=== PATIENT | male | born 1960 | race American Indian/Alaskan Native ===

== ENCOUNTER 2017-08-18 09:50 | Inpatient (IN) | payer OTHER ==
[2017-08-18 10:53] LABS: Basophils # (Auto) 0.1 K/mm3 (0.0-0.1); Basophils % (Auto) 0.9 % (0.0-1.8); Eosinophils # (Auto) 0.1 K/mm3 (0.0-0.4); Hematocrit 42.9 % (35.5-45.6); Hemoglobin 14.1 gm/dl (11.8-15.2); Lymphocytes % (Auto) 22.4 % (13.4-35.0); Mean Corpuscular HGB Conc 33 % (32-34); Mean Corpuscular Hemoglobin 29 pg (28-32); Mean Corpuscular Volume 87 fl (84-94); Monocytes # (Auto) 0.6 K/mm3 (0.0-0.8); Monocytes % (Auto) 7.2 % (0.0-7.3); Platelet Count 312 K/mm3 (140-440); Red Blood Count 4.93 M/mm3 (3.65-5.03); Red Cell Distribution Width 13.9 % (13.2-15.2)
--- NOTE | 2017-08-18 11:00 | Emergency Department Report ---
ED Neuro Deficit HPI - General Chief Complaint: High BP Stated Complaint: HIGH BP/UNSTEADY Time Seen by Provider: 08/18/17 10:13 Source: patient Mode of arrival: Ambulatory Limitations: No Limitations - History of Present Illness Initial Comments: Mr Kyle is a 56 year-old man with hx of HTN, IDDM who presents with unsteady gait. Onset last night around 6pm. When he stands up he needs help or he falls over to the left side. No spinning sensation. Endorses intermittent blurred vision, none now. Endorses moderate headache. Worse when he is up and around, better when he lays flat. better in the morning. No weakness, no tingling. Has very hard to control BP. SBP always in 200s per patient. No chest pain, no shortness of breath. Home meds: Insulin 70/30 Amlodipine 5mg qd Lisinopril 20mg qd Hydralazine 25mg TID Clonidine 0.1mg qhs\ Reports taking all morning meds prior to arrival. -: Sudden Location: ataxia Presenting Symptoms: Absent: Weak/Paralyzed One Side, Altered Mental Status Place: home Severity: moderate Improves With: none Worsens With: none On Anticoagulants: No Context: sudden onset Associated Symptoms: headaches Treatments Prior to Arrival: none - Related Data Home Medications: Home Medications Medication Instructions Recorded Confirmed Last Taken Gwqux-Diuiu-Prqw 10-320-25 mg 10 - 320 mg PO DAILY 07/09/14 07/09/14 06/29/14 10-320 Aspirin 81 mg PO DAILY 07/09/14 07/09/14 06/29/14 81 Metoprolol 25 mg PO DAILY 07/09/14 07/09/14 06/29/14 Lisinopril 20 mg PO 08/18/17 Unknown amLODIPine [Norvasc] 5 mg PO DAILY 08/18/17 08/18/17 08/18/17 cloNIDine [Catapres] 0.1 mg PO QHS 08/18/17 08/18/17 08/18/17 hydrALAZINE [Apresoline] 25 mg PO Q8HR 08/18/17 08/18/17 08/18/17 Previous Rx's Medication Instructions Recorded Last Taken Type AtorvaSTATin [Lipitor] 10 mg PO DAILY #30 tablet 07/12/14 Unknown Rx Insulin NPH/Regular [NovoLIN 70/30] 32 unit SUB-Q BIDDIAB #1 units 07/12/14 Unknown Rx Lancets 1 each QAC #90 each 07/12/14 Unknown Rx Syringe and Needle,Insulin,1Ml 1 each BIDAC #60 disp.syrin 07/12/14 Unknown Rx [Advocate Syringes] Allergies/Adverse Reactions: Allergies Allergy/AdvReac Type Severity Reaction Status Date / Time No Known Allergies Allergy Verified 08/18/17 09:55 ED Review of Systems ROS: Stated complaint: HIGH BP/UNSTEADY Other details as noted in HPI Comment: All other systems reviewed and negative ED Past Medical Hx - Past Medical History Hx Hypertension: Yes Hx Congestive Heart Failure: No Hx Diabetes: Yes Hx Headaches / Migraines: No Hx Seizures: No Hx Asthma: No Hx COPD: No Hx Dementia: No - Surgical History Past Surgical History?: No - Social History Smoking Status: Never Smoker Substance Use Type: None - Medications Home Medications: Home Medications Medication Instructions Recorded Confirmed Last Taken Type Prthr-Hgxno-Vzoq 10-320-25 mg 10 - 320 mg PO DAILY 07/09/14 07/09/14 06/29/14 History 10-320 Aspirin 81 mg PO DAILY 07/09/14 07/09/14 06/29/14 History 81 Metoprolol 25 mg PO DAILY 07/09/14 07/09/14 06/29/14 History AtorvaSTATin [Lipitor] 10 mg PO DAILY #30 tablet 07/12/14 Unknown Rx Insulin NPH/Regular [NovoLIN 70/30] 32 unit SUB-Q BIDDIAB #1 units 07/12/14 Unknown Rx Lancets 1 each QAC #90 each 07/12/14 Unknown Rx Syringe and Needle,Insulin,1Ml 1 each BIDAC #60 disp.syrin 07/12/14 Unknown Rx [Advocate Syringes] Lisinopril 20 mg PO 08/18/17 Unknown History amLODIPine [Norvasc] 5 mg PO DAILY 08/18/17 08/18/17 08/18/17 History cloNIDine [Catapres] 0.1 mg PO QHS 08/18/17 08/18/17 08/18/17 History hydrALAZINE [Apresoline] 25 mg PO Q8HR 08/18/17 08/18/17 08/18/17 History ED Neuro Physical Exam - General Limitations: No Limitations General appearance: alert, in no apparent distress Suspected Stroke: Yes - Head Head exam: Present: atraumatic, normocephalic - Eye Eye exam: Present: normal appearance, PERRL, EOMI. Absent: scleral icterus, conjunctival injection, nystagmus - ENT ENT exam: Present: normal exam, normal orophraynx, mucous membranes moist - Neck Neck exam: Present: normal inspection. Absent: tenderness, meningismus - Respiratory Respiratory exam: Present: normal lung sounds bilaterally. Absent: respiratory distress, wheezes, rales - Cardiovascular Cardiovascular Exam: Present: regular rate, normal rhythm, normal heart sounds - GI/Abdominal GI/Abdominal exam: Present: soft. Absent: distended, tenderness, guarding - Extremities Exam Extremities exam: Present: normal inspection, normal capillary refill. Absent: tenderness - Back Exam Back exam: Present: normal inspection. Absent: tenderness - Neurological Exam Neurological exam: Present: alert, altered, oriented X3, CN II-XII intact, abnormal gait. Absent: motor sensory deficit (falls to left when he stands up. Unable to stand on one foot, falls to left. finger to nose normal) - NIHSS Assessment Interval: Baseline 1a. Level of Consciousness: alert 1b. LOC Questions: answers correctly 1c. LOC Commands: performs tasks correctly 2. Best Gaze: normal 3. Visual: no visual loss 4. Facial Palsy: normal symmetrical movement 5b. Motor Arm Right: no drift 5a. Motor Arm Left: no drift 6a. Motor Leg Left: no drift 6b. Motor Leg Right: no drift 7. Limb Ataxia: absent 8. Sensory: normal 9. Best Language: no aphasia 10. Dysarthria: normal 11. Extinction/Inattention: no abnormality Total Score: 0 Stroke Severity: No Stroke Symptoms - Psychiatric Psychiatric exam: Present: normal affect, normal mood - Skin Skin exam: Present: warm, dry, intact ED Course Vital Signs 08/18/17 08/18/17 09:55 11:00 Temperature 98.1 F Pulse Rate 68 75 Respiratory 18 18 Rate Blood Pressure 224/115 Blood Pressure 208/107 [Right] O2 Sat by Pulse 99 98 Oximetry - Lab Data Result diagrams: 08/18/17 10:27 08/18/17 10:27 Lab Results 08/18/17 08/18/17 08/18/17 Range/Units 10:27 10:27 10:27 WBC 8.9 (4.5-11.0) K/mm3 RBC 4.93 (3.65-5.03) M/mm3 Hgb 14.1 (11.8-15.2) gm/dl Hct 42.9 (35.5-45.6) % MCV 87 (84-94) fl MCH 29 (28-32) pg MCHC 33 (32-34) % RDW 13.9 (13.2-15.2) % Plt Count 312 (140-440) K/mm3 Lymph % (Auto) 22.4 (13.4-35.0) % [place] % (Auto) 7.2 (0.0-7.3) % Eos % (Auto) 1.0 (0.0-4.3) % Baso % (Auto) 0.9 (0.0-1.8) % Lymph # 2.0 (1.2-5.4) K/mm3 [place] # 0.6 (0.0-0.8) K/mm3 Eos # 0.1 (0.0-0.4) K/mm3 Baso # 0.1 (0.0-0.1) K/mm3 Seg Neutrophils % 68.5 (40.0-70.0) % Seg Neutrophils # 6.1 (1.8-7.7) K/mm3 PT 12.5 (12.2-14.9) Sec. INR 0.89 (0.87-1.13) Sodium 143 (137-145) mmol/L Potassium 4.1 (3.6-5.0) mmol/L Chloride 97.3 L (98-107) mmol/L Carbon Dioxide 28 (22-30) mmol/L Anion Gap 22 mmol/L BUN 10 (9-20) mg/dL Creatinine 0.9 (0.8-1.5) mg/dL Estimated GFR > 60 ml/min BUN/Creatinine Ratio 11 % Glucose 135 H (75-100) mg/dL Calcium 9.8 (8.4-10.2) mg/dL Total Bilirubin 0.60 (0.1-1.2) mg/dL AST 16 (5-40) units/L ALT 18 (7-56) units/L Alkaline Phosphatase 100 (35-129) units/L Troponin T < 0.010 (0.00-0.029) ng/mL Total Protein 7.8 (6.3-8.2) g/dL Albumin 4.7 (3.9-5) g/dL Albumin/Globulin Ratio 1.5 % Urine Color (Yellow) Urine Turbidity (Clear) Urine pH (5.0-7.0) Ur Specific [place] (1.003-1.030) Urine Protein (Negative) mg/dL Urine Glucose (UA) (Negative) mg/dL Urine Ketones (Negative) mg/dL Urine Blood (Negative) Urine Nitrite (Negative) Urine Bilirubin (Negative) Urine Urobilinogen (<2.0) mg/dL Ur Leukocyte Esterase (Negative) Urine WBC (Auto) (0.0-6.0) /HPF Urine RBC (Auto) (0.0-6.0) /HPF Urine Opiates Screen Urine Methadone Screen Ur Barbiturates Screen Ur Phencyclidine Scrn Ur Amphetamines Screen U Benzodiazepines Scrn Urine Cocaine Screen Plasma/Serum Alcohol (0-0.07) % 08/18/17 08/18/17 08/18/17 Range/Units 10:27 10:53 10:53 WBC (4.5-11.0) K/mm3 RBC (3.65-5.03) M/mm3 Hgb (11.8-15.2) gm/dl Hct (35.5-45.6) % MCV (84-94) fl MCH (28-32) pg MCHC (32-34) % RDW (13.2-15.2) % Plt Count (140-440) K/mm3 Lymph % (Auto) (13.4-35.0) % [place] % (Auto) (0.0-7.3) % Eos % (Auto) (0.0-4.3) % Baso % (Auto) (0.0-1.8) % Lymph # (1.2-5.4) K/mm3 [place] # (0.0-0.8) K/mm3 Eos # (0.0-0.4) K/mm3 Baso # (0.0-0.1) K/mm3 Seg Neutrophils % (40.0-70.0) % Seg Neutrophils # (1.8-7.7) K/mm3 PT (12.2-14.9) Sec. INR (0.87-1.13) Sodium (137-145) mmol/L Potassium (3.6-5.0) mmol/L Chloride (98-107) mmol/L Carbon Dioxide (22-30) mmol/L Anion Gap mmol/L BUN (9-20) mg/dL Creatinine (0.8-1.5) mg/dL Estimated GFR ml/min BUN/Creatinine Ratio % Glucose (75-100) mg/dL Calcium (8.4-10.2) mg/dL Total Bilirubin (0.1-1.2) mg/dL AST (5-40) units/L ALT (7-56) units/L Alkaline Phosphatase (35-129) units/L Troponin T (0.00-0.029) ng/mL Total Protein (6.3-8.2) g/dL Albumin (3.9-5) g/dL Albumin/Globulin Ratio % Urine Color Yellow (Yellow) Urine Turbidity Clear (Clear) Urine pH 7.0 (5.0-7.0) Ur Specific [place] 1.009 (1.003-1.030) Urine Protein <15 mg/dl (Negative) mg/dL Urine Glucose (UA) 50 (Negative) mg/dL Urine Ketones Neg (Negative) mg/dL Urine Blood Neg (Negative) Urine Nitrite Neg (Negative) Urine Bilirubin Neg (Negative) Urine Urobilinogen < 2.0 (<2.0) mg/dL Ur Leukocyte Esterase Neg (Negative) Urine WBC (Auto) < 1.0 (0.0-6.0) /HPF Urine RBC (Auto) 1.0 (0.0-6.0) /HPF Urine Opiates Screen Presumptive negative Urine Methadone Screen Presumptive negative Ur Barbiturates Screen Presumptive negative Ur Phencyclidine Scrn Presumptive negative Ur Amphetamines Screen Presumptive negative U Benzodiazepines Scrn Presumptive negative Urine Cocaine Screen Presumptive negative Plasma/Serum Alcohol < 0.01 (0-0.07) % 08/18/17 10:01 HR 65, sinus, normal axis, intervals wnl, no ST changes concerning for acute ischemia - Radiology Data EXAM: CT HEAD/BRAIN WO CON HISTORY: unsteady gait COMPARISON: None. TECHNIQUE: Multiple contiguous axial images were obtained from the skullbase to the vertex without administration of IV contrast. FINDINGS: Brain volume is normal for age. No hemorrhage, mass, mass effect, or midline shift. Ventricles are not enlarged. Normal basal cisterns. No pathologic extra-axial fluid collection. No evidence of acute infarct. No skull fracture. Paranasal sinuses and mastoid air cells are clear. Bilateral orbits are grossly intact. IMPRESSION: No acute intracranial abnormality. - Medical Decision Making Mr Kyle is a 56 year-old man with hard to control high blood pressure, insulin dependent DM on 70/30 who presents with 18 hours of unsteady gait, AGUILERA. Endorses intermittent blurred vision for longer period of time. NIHSS 0, but unable to stand/walk without assistance. No vertigo symptoms. Suspect this is cerebellar CVA vs TIA vs peripheral neuropathy vs vitamin deficiency. Low suspicion of ACS. EKG non-ischemic. Trop neg. Lytes wnl. CBC wnl. CT head without abnormality. BP coming down with PO hydral and amlodipine. Admit for posterior CVA work-up. Giving 10mg IV hydralazine as well. he reports his AGUILERA has fully resolved. Taking PO. Remains unsteady, falls to the left. Admit to tele Critical care attestation.: If time is entered above; I have spent that time in minutes in the direct care of this critically ill patient, excluding procedure time. ED Disposition Clinical Impression: Hypertension Qualifiers: Hypertension type: unspecified Qualified Code(s): I10 - Essential (primary) hypertension TIA (transient ischemic attack) Qualifiers: Transient cerebral ischemia type: unspecified Qualified Code(s): G45.9 - Transient cerebral ischemic attack, unspecified Disposition: 09 OP ADMIT IP TO THIS HOSP Is pt being admited?: Yes Condition: Stable Instructions: Hypertension (ED) Referrals: PRIMARY CARE, [Primary Care Provider] - 3-5 Days
[2017-08-18 11:12] LABS: Alanine Aminotransferase 18 units/L (7-56); Albumin 4.7 g/dL (3.9-5); BUN/Creatinine Ratio 11; Blood Urea Nitrogen 10 mg/dL (9-20); Calcium 9.8 mg/dL (8.4-10.2); Hemolysis Index 4
[2017-08-18 11:18] LABS: INR 0.89 (0.87-1.13)
[2017-08-18 11:22] LABS: Bilirubin,Urine NEG (Negative); Blood,Urine NEG (Negative); Color,Urine Yellow (Yellow); Protein,Urine <15 mg/dL mg/dL (Negative); Urobilinogen,Urine < 2.0 mg/dL (<2.0); WBC,Urine < 1.0 /HPF (0.0-6.0)
[2017-08-18 11:33] LABS: Amphetamine Screen,Urine PRESUMPTIVE NEGATIVE; Benzodiazepines Screen,Urine PRESUMPTIVE NEGATIVE; Cocaine Screen,Urine PRESUMPTIVE NEGATIVE; Methadone Screen,Urine PRESUMPTIVE NEGATIVE; Opiate Screen,Urine PRESUMPTIVE NEGATIVE
--- NOTE | 2017-08-18 11:38 | Cat Scan Report ---
FINAL REPORT EXAM: CT HEAD/BRAIN WO CON HISTORY: unsteady gait COMPARISON: None. TECHNIQUE: Multiple contiguous axial images were obtained from the skullbase to the vertex without administration of IV contrast. FINDINGS: Brain volume is normal for age. No hemorrhage, mass, mass effect, or midline shift. Ventricles are not enlarged. Normal basal cisterns. No pathologic extra-axial fluid collection. No evidence of acute infarct. No skull fracture. Paranasal sinuses and mastoid air cells are clear. Bilateral orbits are grossly intact. IMPRESSION: No acute intracranial abnormality.
[2017-08-18] MEDS ORDERED: APRESOLINE IV ONE ×2 (12:17→15:00)
[2017-08-18 12:23] LABS: Cannabinoid Screen,Urine PRESUMPTIVE POSITIVE
[2017-08-18] MEDS ORDERED: MORPHINE IV ONE (14:10)
[2017-08-18] MEDS ORDERED: MORPHINE ONE (14:11)
[2017-08-18] MEDS ORDERED: APRESOLINE ONE (15:10)
[2017-08-18] MEDS ORDERED: TYLENOL PO PRN (17:13)
[2017-08-18] MEDS ORDERED: SODIUM CHLORIDE FLUSH SYRINGE 10 ML IV PRN (17:13)
[2017-08-18] MEDS ORDERED: PERCOCET 5/325 PO PRN (17:13)
[2017-08-18] MEDS ORDERED: ZOFRAN IV PRN (17:13)
[2017-08-18] MEDS ORDERED: MORPHINE IV PRN (17:13)
--- NOTE | 2017-08-18 17:25 | History and Physical Report ---
History of Present Illness Date of examination: 08/18/17 Date of admission: 08/18/17 14:38 Chief complaint: Chief complaint: Unsteady gait since 6:30 PM yesterday evening History of present illness: History of Present Illness: 56-year-old black male with history of hypertension insulin-dependent diabetes noncompliant comes in for unsteady gait since last night around 6 PM. Patient also has blurred vision and headache. Headache is about 7 on scale of 1-10. No chest pain. Unsteady gait persists. Patient does not have any nasal regurgitation of fluids. No diplopia. His blood pressure was high in the emergency room Mr Kyle is a 56 year-old man with hx of HTN, IDDM who presents with unsteady gait. Onset last night around 6pm. When he stands up he needs help or he falls over to the left side. No spinning sensation. Endorses intermittent blurred vision, none now. Endorses moderate headache. Worse when he is up and around, better when he lays flat. better in the morning. No weakness, no tingling. Has very hard to control BP. SBP always in 200s per patient. No chest pain, no shortness of breath. Past Medical History Hx Hypertension: Yes Hx Diabetes: Yes Surgical History Past Surgical History?: No Social History Smoking Status: Never Smoker Substance Use Type: None Family history: Htn - Medications Home Medications: Home Medications Medication Instructions Recorded Confirmed Last Taken Type Tzlkr-Rocqw-Evza 10-320-25 mg 10 - 320 mg PO DAILY 07/09/14 07/09/14 06/29/14 History 10-320 Aspirin 81 mg PO DAILY 07/09/14 07/09/14 06/29/14 History 81 Metoprolol 25 mg PO DAILY 07/09/14 07/09/14 06/29/14 History AtorvaSTATin [Lipitor] 10 mg PO DAILY #30 tablet 07/12/14 Unknown Rx Insulin NPH/Regular [NovoLIN 70/30] 32 unit SUB-Q BIDDIAB #1 units 07/12/14 Unknown Rx Lancets 1 each QAC #90 each 07/12/14 Unknown Rx Syringe and Needle,Insulin,1Ml 1 each BIDAC #60 disp.syrin 07/12/14 Unknown Rx [Advocate Syringes] Lisinopril 20 mg PO 08/18/17 Unknown History amLODIPine [Norvasc] 5 mg PO DAILY 08/18/17 08/18/17 08/18/17 History cloNIDine [Catapres] 0.1 mg PO QHS 08/18/17 08/18/17 08/18/17 History hydrALAZINE [Apresoline] 25 mg PO Q8HR 08/18/17 08/18/17 08/18/17 History Review of Systems ROS: Stated complaint: HIGH BP/UNSTEADY Gait Other details as noted in HPI No nasal regurgitation of fluids Comment: All other systems reviewed and negative Medications and Allergies Allergies Allergy/AdvReac Type Severity Reaction Status Date / Time No Known Allergies Allergy Verified 08/18/17 09:55 Home Medications Medication Instructions Recorded Confirmed Last Taken Type Dytbr-Hcyov-Mcqg 10-320-25 mg 10 - 320 mg PO DAILY 07/09/14 07/09/14 06/29/14 History 10-320 Aspirin 81 mg PO DAILY 07/09/14 07/09/14 06/29/14 History 81 Metoprolol 25 mg PO DAILY 07/09/14 07/09/14 06/29/14 History AtorvaSTATin [Lipitor] 10 mg PO DAILY #30 tablet 07/12/14 Unknown Rx Insulin NPH/Regular [NovoLIN 70/30] 32 unit SUB-Q BIDDIAB #1 units 07/12/14 Unknown Rx Lancets 1 each QAC #90 each 07/12/14 Unknown Rx Syringe and Needle,Insulin,1Ml 1 each BIDAC #60 disp.syrin 07/12/14 Unknown Rx [Advocate Syringes] Lisinopril 20 mg PO 08/18/17 Unknown History amLODIPine [Norvasc] 5 mg PO DAILY 08/18/17 08/18/17 08/18/17 History cloNIDine [Catapres] 0.1 mg PO QHS 08/18/17 08/18/17 08/18/17 History hydrALAZINE [Apresoline] 25 mg PO Q8HR 08/18/17 08/18/17 08/18/17 History Active Meds: Active Medications Acetaminophen (Tylenol) 650 mg PO Q4H PRN PRN Reason: Pain MILD(1-3)/Fever >100.5/AGUILERA Amlodipine Besylate (Norvasc) 10 mg PO DAILY [facility] Famotidine (Pepcid) 20 mg PO BID [facility] Hydralazine HCl (Apresoline) 50 mg PO Q8HR [facility] Hydralazine HCl (Apresoline) 10 mg IV Q3H PRN PRN Reason: Hypertension Insulin Human Isoph/Insulin Regular (Humulin 70/30) 32 unit SUB-Q BIDDIAB [facility] Insulin Human Lispro (Humalog) 0 unit SUB-Q ACHS JOSH; Protocol Miscellaneous Medication (Aspirin) 81 mg PO DAILY [facility] Miscellaneous Medication (Exforge) 320 mg PO DAILY [facility] Miscellaneous Medication (Metoprolol) 50 mg PO DAILY [facility] Morphine Sulfate (Morphine) 2 mg IV Q4H PRN PRN Reason: Pain, Moderate (4-6) Ondansetron HCl (Zofran) 4 mg IV Q8H PRN PRN Reason: Nausea And Vomiting Oxycodone/Acetaminophen (Percocet 5/325) 1 tab PO Q6H PRN PRN Reason: Pain, Moderate (4-6) Pneumococcal Polyvalent Vaccine (Pneumovax 23) 0.5 ml IM .ONCE ONE Stop: 08/19/17 12:01 Sodium Chloride (Sodium Chloride Flush Syringe 10 Ml) 10 ml IV BID [facility] Sodium Chloride (Sodium Chloride Flush Syringe 10 Ml) 10 ml IV PRN PRN PRN Reason: LINE FLUSH Zolpidem Tartrate (Ambien) 5 mg PO QHS PRN PRN Reason: Insomnia Exam - Constitutional Vitals: Temp Pulse Resp BP Pulse Ox 98.1 F 87 20 201/107 100 08/18/17 09:55 08/18/17 16:31 08/18/17 16:31 08/18/17 15:00 08/18/17 16:31 General appearance: Present: no acute distress, well-nourished - EENT Eyes: Present: PERRL ENT: hearing intact, clear oral mucosa - Neck Neck: Present: supple, normal ROM - Respiratory Respiratory effort: normal Respiratory: bilateral: CTA - Cardiovascular Heart rate: 80 Rhythm: regular Heart Sounds: Present: S1 & S2. Absent: rub, click - Extremities Extremities: no ischemia, pulses intact, pulses symmetrical, No edema Peripheral Pulses: within normal limits - Abdominal General gastrointestinal: Present: soft, non-tender, non-distended, normal bowel sounds Male genitourinary: Present: normal - Rectal Rectal Exam: deferred - Integumentary Integumentary: Present: clear, warm, dry - Musculoskeletal Musculoskeletal: gait normal, strength equal bilaterally - Psychiatric Psychiatric: appropriate mood/affect, intact judgment & insight - Neurologic Neurologic: CNII-XII intact, moves all extremities, other (normal PRESS OPERATOR exam) - Allied Health Allied health notes reviewed: nursing, case management Results - Labs CBC & Chem 7: 08/18/17 10:27 08/18/17 10:27 Labs: Laboratory Last Values WBC 8.9 K/mm3 (4.5-11.0) 08/18/17 10:27 RBC 4.93 M/mm3 (3.65-5.03) 08/18/17 10:27 Hgb 14.1 gm/dl (11.8-15.2) 08/18/17 10:27 Hct 42.9 % (35.5-45.6) 08/18/17 10:27 MCV 87 fl (84-94) 08/18/17 10:27 MCH 29 pg (28-32) 08/18/17 10:27 MCHC 33 % (32-34) 08/18/17 10:27 RDW 13.9 % (13.2-15.2) 08/18/17 10:27 Plt Count 312 K/mm3 (140-440) 08/18/17 10:27 Lymph % (Auto) 22.4 % (13.4-35.0) 08/18/17 10:27 [place] % (Auto) 7.2 % (0.0-7.3) 08/18/17 10:27 Eos % (Auto) 1.0 % (0.0-4.3) 08/18/17 10:27 Baso % (Auto) 0.9 % (0.0-1.8) 08/18/17 10:27 Lymph # 2.0 K/mm3 (1.2-5.4) 08/18/17 10:27 [place] # 0.6 K/mm3 (0.0-0.8) 08/18/17 10:27 Eos # 0.1 K/mm3 (0.0-0.4) 08/18/17 10:27 Baso # 0.1 K/mm3 (0.0-0.1) 08/18/17 10:27 Seg Neutrophils % 68.5 % (40.0-70.0) 08/18/17 10:27 Seg Neutrophils # 6.1 K/mm3 (1.8-7.7) 08/18/17 10:27 PT 12.5 Sec. (12.2-14.9) 08/18/17 10:27 INR 0.89 (0.87-1.13) 08/18/17 10:27 Sodium 143 mmol/L (137-145) 08/18/17 10:27 Potassium 4.1 mmol/L (3.6-5.0) 08/18/17 10:27 Chloride 97.3 mmol/L (98-107) L 08/18/17 10:27 Carbon Dioxide 28 mmol/L (22-30) 08/18/17 10:27 Anion Gap 22 mmol/L 08/18/17 10:27 BUN 10 mg/dL (9-20) 08/18/17 10:27 Creatinine 0.9 mg/dL (0.8-1.5) 08/18/17 10:27 Estimated GFR > 60 ml/min 08/18/17 10:27 BUN/Creatinine Ratio 11 % 08/18/17 10:27 Glucose 135 mg/dL (75-100) H 08/18/17 10:27 POC Glucose 124 (70-105) H 08/18/17 16:35 Calcium 9.8 mg/dL (8.4-10.2) 08/18/17 10:27 Total Bilirubin 0.60 mg/dL (0.1-1.2) 08/18/17 10:27 AST 16 units/L (5-40) 08/18/17 10:27 ALT 18 units/L (7-56) 08/18/17 10:27 Alkaline Phosphatase 100 units/L (35-129) 08/18/17 10:27 Troponin T < 0.010 ng/mL (0.00-0.029) 08/18/17 10:27 Total Protein 7.8 g/dL (6.3-8.2) 08/18/17 10:27 Albumin 4.7 g/dL (3.9-5) 08/18/17 10:27 Albumin/Globulin Ratio 1.5 % 08/18/17 10:27 Urine Color Yellow (Yellow) 08/18/17 10:53 Urine Turbidity Clear (Clear) 08/18/17 10:53 Urine pH 7.0 (5.0-7.0) 08/18/17 10:53 Ur Specific [place] 1.009 (1.003-1.030) 08/18/17 10:53 Urine Protein <15 mg/dl mg/dL (Negative) 08/18/17 10:53 Urine Glucose (UA) 50 mg/dL (Negative) 08/18/17 10:53 Urine Ketones Neg mg/dL (Negative) 08/18/17 10:53 Urine Blood Neg (Negative) 08/18/17 10:53 Urine Nitrite Neg (Negative) 08/18/17 10:53 Urine Bilirubin Neg (Negative) 08/18/17 10:53 Urine Urobilinogen < 2.0 mg/dL (<2.0) 08/18/17 10:53 Ur Leukocyte Esterase Neg (Negative) 08/18/17 10:53 Urine WBC (Auto) < 1.0 /HPF (0.0-6.0) 08/18/17 10:53 Urine RBC (Auto) 1.0 /HPF (0.0-6.0) 08/18/17 10:53 Urine Opiates Screen Presumptive negative 08/18/17 10:53 Urine Methadone Screen Presumptive negative 08/18/17 10:53 Ur Barbiturates Screen Presumptive negative 08/18/17 10:53 Ur Phencyclidine Scrn Presumptive negative 08/18/17 10:53 Ur Amphetamines Screen Presumptive negative 08/18/17 10:53 U Benzodiazepines Scrn Presumptive negative 08/18/17 10:53 Urine Cocaine Screen Presumptive negative 08/18/17 10:53 U Marijuana (THC) Screen Presumptive positive 08/18/17 10:53 Drugs of Abuse Note Disclamer 08/18/17 10:53 Plasma/Serum Alcohol < 0.01 % (0-0.07) 08/18/17 10:27 Short CBC 08/18/17 Range/Units 10:27 WBC 8.9 (4.5-11.0) K/mm3 Hgb 14.1 (11.8-15.2) gm/dl Hct 42.9 (35.5-45.6) % Plt Count 312 (140-440) K/mm3 BMP 08/18/17 10:27 Sodium 143 Potassium 4.1 Chloride 97.3 L Carbon Dioxide 28 BUN 10 Creatinine 0.9 Glucose 135 H Calcium 9.8 Cardiac Enzymes 08/18/17 Range/Units 10:27 Troponin T < 0.010 (0.00-0.029) ng/mL Liver Function 08/18/17 Range/Units 10:27 Total Bilirubin 0.60 (0.1-1.2) mg/dL AST 16 (5-40) units/L ALT 18 (7-56) units/L Alkaline Phosphatase 100 (35-129) units/L Albumin 4.7 (3.9-5) g/dL Urine 08/18/17 Range/Units 10:53 Urine Color Yellow (Yellow) Urine pH 7.0 (5.0-7.0) Ur Specific [place] 1.009 (1.003-1.030) Urine Protein <15 mg/dl (Negative) mg/dL Urine Glucose (UA) 50 (Negative) mg/dL - Imaging and Cardiology EKG: report reviewed (heart rate 65 LVH by voltage criteria) CT Scan - head: report reviewed (no acute findings) Assessment and Plan Assessment and plan: The high probability of a clinically significant, sudden or life threatening deterioration of the [Pulmonary, cadiac, renal] system(s) required my full and direct attention, intervention and personal management. The aggregate critical care time was [35] minutes. This time is in addition to time spent performing reported procedures but includes the following: [x] Data Review and interpretation [x] Patient assessment and monitoring of vital signs [x] Documentation [x] Medication orders and management Advance Directives: Yes (full code) VTE prophylaxis?: Chemical Plan of care discussed with patient/family: Yes - Patient Problems (1) Hypertensive emergency Current Visit: Yes Status: Acute Plan to address problem: Patient's medications were adjusted. IV hydralazine 10 mg every 3 hours. Continue valsartan 320 mg once a day. Clonidine is once a day which may be causing rebound hypertension--- hence stopped. Patient's hydralazine increased from 25 mg to 50 mg every 8hrs. Metoprolol increased to 50 mg once a day. Monitor blood pressure closely. Cardene drip if necessary. Patient counseled to be compliant with his blood pressure medications (2) Ataxia Current Visit: Yes Status: Acute Plan to address problem: Probably secondary to hypertensive encephalopathy Resolved MRI to rule out any small infarcts. Complete workup for his CVA was not ordered (3) Insulin dependent diabetes mellitus Current Visit: Yes Status: Chronic Plan to address problem: Continue home insulin Check hemoglobin A1c Adjust the insulin dosage Coverage for now (4) Hyperlipidemia Current Visit: Yes Status: Chronic Qualifiers: Hyperlipidemia type: mixed hyperlipidemia Qualified Code(s): E78.2 - Mixed hyperlipidemia Plan to address problem: Continue statins (5) DVT prophylaxis Current Visit: No Status: Acute Plan to address problem: Lovenox 40 mg subcutaneous daily
[2017-08-18] MEDS ORDERED: EXFORGE PO SCH (17:30)
[2017-08-18] MEDS ORDERED: NON-FORMULARY (Metoprolol 50 MG) PO SCH (17:30)
[2017-08-18] MEDS ORDERED: NON-FORMULARY (Aspirin 81 MG) PO SCH (17:30)
[2017-08-18] MEDS: BABY ASPIRIN PO SCH (18:13)
[2017-08-18] MEDS: LOPRESSOR PO SCH (18:13)
[2017-08-18] MEDS: APRESOLINE PO SCH (18:13)
[2017-08-18] MEDS ORDERED: PEPCID PO SCH (22:00)
[2017-08-18] MEDS ORDERED: AMBIEN PO PRN (22:00)
[2017-08-18] MEDS: HumaLOG SUB-Q SCH (22:02)
[2017-08-18] MEDS: APRESOLINE IV PRN (22:03)
[2017-08-18] MEDS: K-DUR PO SCH (22:03)
[2017-08-18] MEDS: SODIUM CHLORIDE FLUSH SYRINGE 10 ML IV SCH (22:06)
[2017-08-19] MEDS ORDERED: PHENERGAN PR PRN (04:09)
[2017-08-19] MEDS ORDERED: ZOFRAN IV ONE (04:12)
[2017-08-19] MEDS ORDERED: HABITROL TD SCH (04:30)
[2017-08-19] MEDS ORDERED: PROTONIX IV SCH (04:30)
[2017-08-19] MEDS: APRESOLINE PO SCH ×2 (05:12→12:26)
[2017-08-19] MEDS: APRESOLINE IV PRN (05:13)
[2017-08-19] MEDS: HumaLOG SUB-Q SCH ×2 (08:43→12:36)
[2017-08-19] MEDS ORDERED: DIOVAN PO SCH (10:00)
[2017-08-19] MEDS ORDERED: HCTZ PO SCH (10:00)
[2017-08-19] MEDS ORDERED: NORVASC PO SCH (10:00)
--- NOTE | 2017-08-19 10:11 | Magnetic Resonance Report ---
FINAL REPORT EXAM: MR BRAIN WO CON HISTORY: Ataxia COMPARISON: CT of the head performed on 08/18/2017 TECHNIQUE: Multiplanar and multisequential imaging of the brain was performed without administration of IV contrast. FINDINGS: There is a small focus of restricted diffusion within the left aspect of the brainstem (series 4, image 8), concerning for small embolic infarct. The cerebrum is without acute ischemic injury. There is no parenchymal hemorrhage or extra-axial fluid collection. There is no mass or mass effect. On FLAIR imaging, are scattered foci of increased signal in the subcortical white matter, likely due to chronic microvascular ischemic changes. The ventricles are midline. The subarachnoid spaces and basilar cisterns are clear. There is normal signal of the bony calvarium and the soft tissues of the scalp. The flow voids at the base of the brain are intact. The bilateral orbits are normal. IMPRESSION: Small focus of restricted diffusion in the left aspect of the brainstem concerning for small embolic infarct. Findings were discussed with NAVDEEP Escalera at 10:03 a.m., Eastern standard time, on 08/19/2017.
[2017-08-19] MEDS: BABY ASPIRIN PO SCH (10:49)
[2017-08-19] MEDS: SODIUM CHLORIDE FLUSH SYRINGE 10 ML IV SCH (10:50)
[2017-08-19] MEDS: LOPRESSOR PO SCH (10:50)
[2017-08-19] MEDS: K-DUR PO SCH (10:50)
[2017-08-19 11:22] LABS: Basophils % (Auto) 0.4 % (0.0-1.8); Hematocrit 43.8 % (35.5-45.6); Hemoglobin 14.5 gm/dl (11.8-15.2); Lymphocytes # (Auto) 1.2 K/mm3 (1.2-5.4); Lymphocytes % (Auto) 11.7 % (13.4-35.0); Mean Corpuscular HGB Conc 33 % (32-34); Mean Corpuscular Hemoglobin 29 pg (28-32); Mean Corpuscular Volume 87 fl (84-94); Monocytes # (Auto) 0.4 K/mm3 (0.0-0.8); Platelet Count 307 K/mm3 (140-440); Red Blood Count 5.03 M/mm3 (3.65-5.03); Red Cell Distribution Width 14.1 % (13.2-15.2)
--- NOTE | 2017-08-19 11:42 | Consultation ---
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 LIA control is vital the brain stem only involved advise check ECHO and MRA Medications and Allergies Allergies Allergy/AdvReac Type Severity Reaction Status Date / Time No Known Allergies Allergy Verified 08/18/17 09:55 Home Medications Medication Instructions Recorded Confirmed Last Taken Type Dqzyk-Dyhsl-Taql 10-320-25 mg 10 - 320 mg PO DAILY 07/09/14 07/09/14 06/29/14 History 10-320 Aspirin 81 mg PO DAILY 07/09/14 07/09/14 06/29/14 History 81 Metoprolol 25 mg PO DAILY 07/09/14 07/09/14 06/29/14 History AtorvaSTATin [Lipitor] 10 mg PO DAILY #30 tablet 07/12/14 Unknown Rx Insulin NPH/Regular [NovoLIN 70/30] 32 unit SUB-Q BIDDIAB #1 units 07/12/14 Unknown Rx Lancets 1 each QAC #90 each 07/12/14 Unknown Rx Syringe and Needle,Insulin,1Ml 1 each BIDAC #60 disp.syrin 07/12/14 Unknown Rx [[facility] Syringes] Lisinopril 20 mg PO 08/18/17 Unknown History amLODIPine [Norvasc] 5 mg PO DAILY 08/18/17 08/18/17 08/18/17 History cloNIDine [Catapres] 0.1 mg PO QHS 08/18/17 08/18/17 08/18/17 History hydrALAZINE [Apresoline] 25 mg PO Q8HR 08/18/17 08/18/17 08/18/17 History Active Meds: Active Medications Acetaminophen (Tylenol) 650 mg PO Q4H PRN PRN Reason: Pain MILD(1-3)/Fever >100.5/AGUILERA Last Admin: 08/18/17 22:04 Dose: 650 mg Amlodipine Besylate (Norvasc) 10 mg PO DAILY [facility] Last Admin: 08/19/17 10:49 Dose: 10 mg Aspirin (Baby Aspirin) 81 mg PO QDAY [facility] Last Admin: 08/19/17 10:49 Dose: 81 mg Hydralazine HCl (Apresoline) 50 mg PO Q8H [facility] Last Admin: 08/19/17 05:12 Dose: 50 mg Hydralazine HCl (Apresoline) 10 mg IV Q3H PRN PRN Reason: INCREASED BLOOD PRESSURE Last Admin: 08/19/17 05:13 Dose: 10 mg Hydrochlorothiazide (Hctz) 25 mg PO QDAY [facility] Last Admin: 08/19/17 10:49 Dose: 25 mg Insulin Human Isoph/Insulin Regular (Humulin 70/30) 32 unit SUB-Q BIDDIAB [facility] Last Admin: 08/19/17 08:44 Dose: 32 unit Insulin Human Lispro (Humalog) 0 unit SUB-Q ACHS [facility]; Protocol Last Admin: 08/19/17 08:43 Dose: 2 unit Metoprolol Tartrate (Lopressor) 50 mg PO DAILY [facility] Last Admin: 08/19/17 10:50 Dose: 50 mg Morphine Sulfate (Morphine) 2 mg IV Q4H PRN PRN Reason: Pain, Moderate (4-6) Nicotine (Habitrol) 14 mg TD QDAY [facility] Last Admin: 08/19/17 04:29 Dose: 14 mg Ondansetron HCl (Zofran) 4 mg IV Q8H PRN PRN Reason: Nausea And Vomiting Last Admin: 08/19/17 02:05 Dose: 4 mg Oxycodone/Acetaminophen (Percocet 5/325) 1 tab PO Q6H PRN PRN Reason: Pain, Moderate (4-6) Pantoprazole Sodium (Protonix) 40 mg IV BID [facility] Last Admin: 08/19/17 04:29 Dose: 40 mg Pneumococcal Polyvalent Vaccine (Pneumovax 23) 0.5 ml IM .ONCE ONE Stop: 08/19/17 12:01 Potassium Chloride (K-Dur) 10 meq PO QDAY [facility] Last Admin: 08/19/17 10:50 Dose: 10 meq Promethazine HCl (Phenergan) 25 mg OK Q6H PRN PRN Reason: Nausea And Vomiting Last Admin: 08/19/17 04:28 Dose: 25 mg Sodium Chloride (Sodium Chloride Flush Syringe 10 Ml) 10 ml IV BID [facility] Last Admin: 08/19/17 10:50 Dose: 10 ml Sodium Chloride (Sodium Chloride Flush Syringe 10 Ml) 10 ml IV PRN PRN PRN Reason: LINE FLUSH Valsartan (Diovan) 320 mg PO QDAY [facility] Last Admin: 07/08/18 10:49 Dose: 320 mg Zolpidem Tartrate (Ambien) 5 mg PO QHS PRN PRN Reason: Insomnia Physical Examination - Vital Signs Vital Signs: Vital Signs Temp Pulse Resp BP Pulse Ox 98.1 F 68 18 224/115 99 08/18/17 09:55 08/18/17 09:55 08/18/17 09:55 08/18/17 09:55 08/18/17 09:55 - Assessment Assessment Interval: Baseline - Level of Consciousness 1a. Level of Consciousness: alert - LOC Questions 1b. LOC Questions: answers correctly - LOC Command 1c. LOC Commands: performs tasks correctly - Best Gaze 2. Best Gaze: normal - Visual 3. Visual: no visual loss - Facial Palsy 4. Facial Palsy: normal symmetrical movement - Motor Arm 5b. Motor Arm Right: no drift - Motor Leg 6a. Motor Leg Left: no drift - Limb Ataxia 7. Limb Ataxia: absent - Sensory 8. Sensory: normal - Best Language 9. Best Language: no aphasia - Dysarthria 10. Dysarthria: normal - Extinction and Inattention 11. Extinction/Inattention: no abnormality Results - Laboratory Findings CBC and BMP: 08/19/17 10:58 08/18/17 10:27 Abnormal Lab Findings: Abnormal Labs 08/18/17 08/18/17 08/18/17 10:00 10:27 16:35 Lymph % (Auto) Seg Neutrophils % Seg Neutrophils # Chloride 97.3 L Glucose 135 H POC Glucose 125 H 124 H Hemoglobin A1c 08/18/17 08/18/17 08/19/17 17:48 20:57 06:29 Lymph % (Auto) Seg Neutrophils % Seg Neutrophils # Chloride Glucose POC Glucose 182 H 199 H Hemoglobin A1c 6.1 H 08/19/17 10:58 Lymph % (Auto) 11.7 L Seg Neutrophils % 83.9 H Seg Neutrophils # 8.4 H Chloride Glucose POC Glucose Hemoglobin A1c
[2017-08-19 11:51] LABS: Alanine Aminotransferase 16 units/L (7-56); Albumin 4.8 g/dL (3.9-5); BUN/Creatinine Ratio 14; Blood Urea Nitrogen 14 mg/dL (9-20); Calcium 9.9 mg/dL (8.4-10.2); Hemolysis Index 9
[2017-08-19] MEDS ORDERED: PNEUMOVAX 23 IM ONE (12:00)
[2017-08-19 12:27] VITALS: BP 178/94
--- NOTE | 2017-08-19 13:38 | Progress Note ---
Assessment and Plan Assessment and plan: Mr. Kyle is a 56 yo man with a history of hypertension, dyslipidemia and IDDM who presented to [facility] ED with unsteady gait, headache, dizziness, blurry vision and confusion with lethargy. NIHSS was 0. * 224/115, HR 68 * CT head wo contrast IMPRESSION: No acute intracranial abnormality. * MRI brain wo contrast IMPRESSION: Small focus of restricted diffusion in the left aspect of the brainstem concerning for small embolic infarct. 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 Follow-up on current diagnosis for ataxia, still present. Overnight uneventful. Patient denies any chest pain, shortness breath, nausea/vomiting or severe headaches. Imaging, nursing note, chart, labs and old chart reviewed. Discussed with patient. Hospitalist Physical - Physical exam Narrative exam: GEN: WDWN, NAD, Awake, Alert, Orientated x 3 HEENT: NCAT, EOMI, PERRL, OP Clear, no nystagmus NECK: supple, no adenopathy, no thyromegaly, no JVD CVS/HEART: RRR, normal S1S2, pulses present bilaterally CHEST/LUNGS: CTA B, Symmetrical chest expansion, good air entry bilaterally GI/Abdomen: soft, NTND, good bowel sounds, no guarding or rebound /Bladder: no suprapubic tenderness, no CVA or paraspinal tenderness EXT/Skin: no c/c/e, no obvious rash MSK: FROM x 4 Neuro: CN 2-12 grossly intact, ataxic tried to walk, Psych: calm, GCS 15 - Constitutional Vitals: Temp Pulse Resp BP Pulse Ox 98.3 F 96 H 18 178/94 99 08/19/17 11:55 08/19/17 12:26 08/19/17 11:55 08/19/17 12:26 08/19/17 11:55 General appearance: Present: no acute distress, well-nourished Results - Labs CBC & Chem 7: 08/19/17 10:58 08/19/17 10:58 Labs: Laboratory Last Values WBC 10.0 K/mm3 (4.5-11.0) 08/19/17 10:58 RBC 5.03 M/mm3 (3.65-5.03) 08/19/17 10:58 Hgb 14.5 gm/dl (11.8-15.2) 08/19/17 10:58 Hct 43.8 % (35.5-45.6) 08/19/17 10:58 MCV 87 fl (84-94) 08/19/17 10:58 MCH 29 pg (28-32) 08/19/17 10:58 MCHC 33 % (32-34) 08/19/17 10:58 RDW 14.1 % (13.2-15.2) 08/19/17 10:58 Plt Count 307 K/mm3 (140-440) 08/19/17 10:58 Lymph % (Auto) 11.7 % (13.4-35.0) L 08/19/17 10:58 Hickman % (Auto) 4.0 % (0.0-7.3) 08/19/17 10:58 Eos % (Auto) 0.0 % (0.0-4.3) 08/19/17 10:58 Baso % (Auto) 0.4 % (0.0-1.8) 08/19/17 10:58 Lymph # 1.2 K/mm3 (1.2-5.4) 08/19/17 10:58 Hickman # 0.4 K/mm3 (0.0-0.8) 08/19/17 10:58 Eos # 0.0 K/mm3 (0.0-0.4) 08/19/17 10:58 Baso # 0.0 K/mm3 (0.0-0.1) 08/19/17 10:58 Seg Neutrophils % 83.9 % (40.0-70.0) H 08/19/17 10:58 Seg Neutrophils # 8.4 K/mm3 (1.8-7.7) H 08/19/17 10:58 PT 12.5 Sec. (12.2-14.9) 08/18/17 10:27 INR 0.89 (0.87-1.13) 08/18/17 10:27 Sodium 140 mmol/L (137-145) 08/19/17 10:58 Potassium 3.9 mmol/L (3.6-5.0) 08/19/17 10:58 Chloride 97.3 mmol/L (98-107) L 08/19/17 10:58 Carbon Dioxide 26 mmol/L (22-30) 08/19/17 10:58 Anion Gap 21 mmol/L 08/19/17 10:58 BUN 14 mg/dL (9-20) 08/19/17 10:58 Creatinine 1.0 mg/dL (0.8-1.5) 08/19/17 10:58 Estimated GFR > 60 ml/min 08/19/17 10:58 BUN/Creatinine Ratio 14 % 08/19/17 10:58 Glucose 180 mg/dL (75-100) H 08/19/17 10:58 POC Glucose 159 (70-105) H 08/19/17 12:23 Hemoglobin A1c 6.1 % (4-6) H 08/18/17 17:48 Calcium 9.9 mg/dL (8.4-10.2) 08/19/17 10:58 Total Bilirubin 0.60 mg/dL (0.1-1.2) 08/19/17 10:58 AST 16 units/L (5-40) 08/19/17 10:58 ALT 16 units/L (7-56) 08/19/17 10:58 Alkaline Phosphatase 99 units/L (35-129) 08/19/17 10:58 Troponin T < 0.010 ng/mL (0.00-0.029) 08/18/17 10:27 Total Protein 8.0 g/dL (6.3-8.2) 08/19/17 10:58 Albumin 4.8 g/dL (3.9-5) 08/19/17 10:58 Albumin/Globulin Ratio 1.5 % 08/19/17 10:58 Urine Color Yellow (Yellow) 08/18/17 10:53 Urine Turbidity Clear (Clear) 08/18/17 10:53 Urine pH 7.0 (5.0-7.0) 08/18/17 10:53 Ur Specific [place] 1.009 (1.003-1.030) 08/18/17 10:53 Urine Protein <15 mg/dl mg/dL (Negative) 08/18/17 10:53 Urine Glucose (UA) 50 mg/dL (Negative) 08/18/17 10:53 Urine Ketones Neg mg/dL (Negative) 08/18/17 10:53 Urine Blood Neg (Negative) 08/18/17 10:53 Urine Nitrite Neg (Negative) 08/18/17 10:53 Urine Bilirubin Neg (Negative) 08/18/17 10:53 Urine Urobilinogen < 2.0 mg/dL (<2.0) 08/18/17 10:53 Ur Leukocyte Esterase Neg (Negative) 08/18/17 10:53 Urine WBC (Auto) < 1.0 /HPF (0.0-6.0) 08/18/17 10:53 Urine RBC (Auto) 1.0 /HPF (0.0-6.0) 08/18/17 10:53 Urine Opiates Screen Presumptive negative 08/18/17 10:53 Urine Methadone Screen Presumptive negative 08/18/17 10:53 Ur Barbiturates Screen Presumptive negative 08/18/17 10:53 Ur Phencyclidine Scrn Presumptive negative 08/18/17 10:53 Ur Amphetamines Screen Presumptive negative 08/18/17 10:53 U Benzodiazepines Scrn Presumptive negative 08/18/17 10:53 Urine Cocaine Screen Presumptive negative 08/18/17 10:53 U Marijuana (THC) Screen Presumptive positive 08/18/17 10:53 Drugs of Abuse Note Disclamer 08/18/17 10:53 Plasma/Serum Alcohol < 0.01 % (0-0.07) 08/18/17 10:27
--- NOTE | 2017-08-19 14:01 | Discharge Summary ---
Providers - Providers Date of Admission: 08/18/17 14:38 Date of discharge: 08/19/17 Attending physician: MALLIKA CALVO 08/19/17 10:16 Consult to Physician [CONS] Routine Comment: Consulting Provider: VIVIAN ANDERS Physician Instructions: Reason For Exam: brainstem infarct Primary care physician: GETTERING OPERATOR Hospitalization Condition: Stable Hospital course: Mr. Kyle is a 56 yo man with a history of hypertension, tobacco dependecny , dyslipidemia and IDDM who presented to [facility] ED with unsteady gait, headache, dizziness, blurry vision and confusion with lethargy. NIHSS was 0. * 224/115, HR 68 * CT head wo contrast IMPRESSION: No acute intracranial abnormality. * MRI brain wo contrast IMPRESSION: Small focus of restricted diffusion in the left aspect of the brainstem concerning for small embolic infarct. 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 Andrew, he wants patient transferred to Neuro ICU at [facility]. He has accepted patient for transfer. I spoke with Charge Nurse, Bobby to get copy of MRI brain CD rom image. Disposition: [id number] ANOTHER TYPE HLTHCARE Time spent for discharge: 35 minutes Core Measure Documentation - Palliative Care Palliative Care/ Comfort Measures: Not Applicable - Core Measures Any of the following diagnoses?: stroke - VTE Discharge Requirements Deep Vein Thrombosis/Pulmonary Embolism Present on Admission: No Has pt received <5 days of overlap therapy or INR<2.0: No Anticoagulant overlap therapy prescribed at discharge: No Contraindication No Overlap Therapy order at DC: Not Indicated - Stroke Discharge Requirements Statin for LDL = or >70 mg/dl on DC: Yes Anticoag for atrial fib/atrial flutter: Not Applicable Antithrombotic for ischemic stroke: Yes Exam - Physical Exam Narrative exam: GEN: WDWN, NAD, Awake, Alert, Orientated x 3 HEENT: NCAT, EOMI, PERRL, OP Clear, no nystagmus NECK: supple, no adenopathy, no thyromegaly, no JVD CVS/HEART: RRR, normal S1S2, pulses present bilaterally CHEST/LUNGS: CTA B, Symmetrical chest expansion, good air entry bilaterally GI/Abdomen: soft, NTND, good bowel sounds, no guarding or rebound /Bladder: no suprapubic tenderness, no CVA or paraspinal tenderness EXT/Skin: no c/c/e, no obvious rash MSK: FROM x 4 Neuro: CN 2-12 grossly intact, ataxic tried to walk, Psych: calm, GCS 15 - Constitutional Vitals: Temp Pulse Resp BP Pulse Ox 98.3 F 96 H 18 178/94 99 08/19/17 11:55 08/19/17 12:26 08/19/17 11:55 08/19/17 12:26 08/19/17 11:55 Plan Activity: fall precautions Diet: low salt, diabetic Special Instructions: smoking cessation Follow up with: [facility], [facility] [Provider Group] - 08/19/17 Prescriptions: Aspirin [Aspirin BABY CHEW TAB] 81 mg PO QDAY #30 tab.chew AtorvaSTATin [Lipitor] 40 mg PO DAILY #30 tablet Nicotine [Habitrol] 14 mg TD QDAY #30 patch
--- NOTE | 2017-08-19 16:15 | Consultation ---
HISTORY OF PRESENT ILLNESS: This 56-year-old black male. This patient is admitted to the hospital because of severe ataxia, problems with standing, apparently fell over, had intermittent blurred vision. He had a prior history of taking clonidine, insulin, amlodipine, lisinopril. On presentation, he stated that he had the sudden onset of blood pressures of being markedly elevated, which he states were very hard to control despite the use of his hydralazine. On presentation to the Emergency Room, his electrolytes revealed glucose was elevated at 135. The patient had a CT scan of the head, which initially showed no acute lesions. The patient was hypertensive and blood pressure is 194/113. The patient's condition subsequently has improved, but at present time, he is now complaining of a severe bifrontal headache, poor appetite. When I am seeing him, his lunch tray is in the room, but he is not eating. He is oriented to person, place, and time. 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 Supple neck. Cranial nerves 2-12 intact. The patient's reflexes are entirely absent. Speech is slightly slurred. Review of his MRI scan of the brain does show a stroke in the left lateral medullary plate indicative of an acute ischemic event. This is very small and not very obvious except seen on 2 cuts in the lower most portion of the lower medullary plate. This was seen by the radiologist and I agree with the interpretation, but more typically this is a hypertensive issue as opposed to embolic given the location I would nonetheless review over his MRA and an echocardiogram. Certainly this would explain the profound dizziness and imbalance of his gait. This is a typical location for a lateral medullary plate syndrome, but this area is extremely small, does not involve the cerebellum, would typically account for headaches and difficulty swallowing and severe vertigo. The patient should be monitored closely. Controlled blood pressure is of course is quite important at this point. JOB# [id number] JACQUE/KATIANA
== END 2017-08-19 15:24 | disposition short-term general hospital (02) | DRG 64 ==
LOC: ED 09:50 → 4A 14:38
PROVIDERS: ADMIT Internal Medicine; ATTEND Internal Medicine
PROC: 3E0234Z Introduction of Serum, Toxoid and Vaccine into Muscle, Percutaneous Approach (ICD-10-PCS; principal; 2017-08-19)
DX: I63.49 Cerebral infarction due to embolism of other cerebral artery (principal); G93.49 Other encephalopathy; I16.1 Hypertensive emergency; I10 Essential (primary) hypertension; E11.9 Type 2 diabetes mellitus without complications; R27.0 Ataxia, unspecified; R29.700 NIHSS score 0; E78.5 Hyperlipidemia, unspecified; I16.0 Hypertensive urgency; G46.3 Brain stem stroke syndrome; Z23 Encounter for immunization; Z79.4 Long term (current) use of insulin; Z79.82 Long term (current) use of aspirin
CPT/HCPCS: 36415; 70450; 70551; 80053; 80307; 80320; 81001; 82962; 83036; 84484; 85025; 85610; 90732; 93005; 93010; 93880; 96365; 96375; 99406; C9113; G0480; J0360; J1815; J2270; J2405